=== PATIENT | male | born 1970 | race Caucasian/White ===

== ENCOUNTER 2018-09-10 15:02 | Emergency (ER) | payer MEDICARE, OTHER ==
[~2018-09-10] VITALS: Ht 172.7 cm; Wt 73.0 kg
[~2018-09-10 15:02] MED LIST: ACAR50TA3 PO; ATOR-2 PO; BUPR150T16 PO; CITA-278 PO; CYCL10TA39 PO; DOCU-267 PO; GEMF600T4 PO; GLIP5TAB13 PO; LANTUS SQ; METF-950 PO; METH5TAB2 PO; MULT-1085 PO; PANT40TA4 PO; PREG100C PO; SUMA100T16 PO; TRAZ-218 PO
[2018-09-10] MEDS ORDERED: clindamycin phosphate 150mg/ml inj. IM ONE (15:35)
[2018-09-10] MEDS ORDERED: ACET1TAB12 PO (16:31)
[2018-09-10] MEDS ORDERED: CLIN300C85 PO (16:31)
[2018-09-10 16:41] VITALS: BP 137/96
== END 2018-09-10 16:43 | disposition home or self-care (01) ==
LOC: ER 15:03
DX: K08.89 Other specified disorders of teeth and supporting structures (principal); E11.9 Type 2 diabetes mellitus without complications; G89.29 Other chronic pain; Z88.5 Allergy status to narcotic agent; Z79.84 Long term (current) use of oral hypoglycemic drugs; Z79.899 Other long term (current) drug therapy; Z98.890 Other specified postprocedural states
CPT/HCPCS: 96372; 99283; J3490